=== PATIENT | male | born 2000 | race Caucasian/White ===

== ENCOUNTER 2019-10-13 06:50 | Emergency (ER) | payer SELFPAY ==
[~2019-10-13] VITALS: Ht 185.4 cm; Wt 72.7 kg
[2019-10-13 06:59] VITALS: Ht 185.4 cm; Wt 72.7 kg
[2019-10-13 07:20] LABS: BILIRUBIN NEGATIVE (NEGATIVE); GLUCOSE NEGATIVE (NEGATIVE); KETONE NEGATIVE (NEGATIVE); NITRITE NEGATIVE (NEGATIVE); SPECIFIC GRAVITY 1.015 (1.005-1.020); UROBILINOGEN NORMAL (NORMAL)
[2019-10-13 07:21] LABS: BASOPHILS 0.3 % (0-2); EOSINOPHILS 1.1 % (0-7); HEMATOCRIT 47.7 % (42.0-54.0); HEMOGLOBIN 15.8 g/dL (13.5-17.5); IMMATURE GRANULOCYTES 0.3 % (0-5); LYMPHOCYTES 26.6 % (15-50); MCH 31.7 pg (26.0-34.0); MCHC 33.1 g/dL (31.0-37.0); MCV 95.6 fL (80.0-100.0); MEAN PLATELET VOLUME 9.8 fL (7.4-10.4); MONOCYTES 9.2 % (2-11); NEUTROPHILS 62.5 % (40-80); PLATELET COUNT 280 10x3/uL (130-400); RBC 4.99 10x6/uL (4.20-6.10); RDW 12.8 % (11.5-14.5); WBC 8.8 10x3/uL (4.8-10.8)
[2019-10-13 07:30] LABS: CALC OSMOLALITY 284 mosm/kg (275-300); CALCIUM 9.1 mg/dL (8.5-10.1); CARBON DIOXIDE 28.7 mmol/L (21.0-32.0); CHLORIDE - SERUM 104 mmol/L (98-107); CREATININE - SERUM 1.2 mg/dL (0.6-1.3); GLUCOSE 103 mg/dL (74-106); POTASSIUM - SERUM 4.3 mmol/L (3.5-5.1); SODIUM 142 mmol/L (136-145); UREA NITROGEN 18 mg/dL (7-18); eGFR NON AFRICAN AMERICAN 82 mL/min (90-120)
[2019-10-13 07:36] LABS: ALBUMIN 4.3 g/dL (3.4-5.0); ALKALINE PHOSPHATASE 82 U/L (30-120); ALT (SGPT) 33 U/L (10-68); BILIRUBIN - TOTAL 0.39 mg/dL (0.2-1.3); PROTEIN - SERUM 7.5 g/dL (6.4-8.2)
[2019-10-13 07:39] LABS: AMYLASE - SERUM 74 U/L (25-115); LIPASE 73 U/L (73-393)
[2019-10-13] MEDS ORDERED: MIRALAX17 GM PO (08:32)
[2019-10-13 08:54] VITALS: BP 136/78
== END 2019-10-13 08:55 | disposition home or self-care (01) ==
LOC: D.ER 06:50
PROVIDERS: Family Medicine
DX: K59.00 Constipation, unspecified (principal)